=== PATIENT | female | born 1965 | race African-American/Black ===

== ENCOUNTER 2019-01-04 18:33 | Emergency (ER) | payer OTHER ==
[2019-01-04] MEDS: DEXAMETHASONE 10 MG/ML 1 ML INJ IM (19:29)
[2019-01-04] MEDS: IPRATROPIUM (NEB) 0.5 MG/2.5 ML AMP NEB (19:34)
[2019-01-04] MEDS: ALBUTEROL 0.083% (NEB) 2.5 MG/3 ML AMP NEB (19:34)
[2019-01-04] MEDS: HYDROCODONE/APAP (5/325) TAB PO (19:52)
[2019-01-04] MEDS ORDERED: IBUPROFEN 800 MG TAB PO (20:00)
== END 2019-01-04 20:25 | disposition home or self-care (01) ==
LOC: FTE 20:25
DX: M54.12 Radiculopathy, cervical region (principal); R06.2 Wheezing; Z85.118 Personal history of other malignant neoplasm of bronchus and lung
CPT/HCPCS: 94664; 96372; 99284-25